=== PATIENT | female | born 1945 | race Caucasian/White ===

== ENCOUNTER → 2023-05-14 11:39 | Outpatient (BNVA) | payer MEDICARE, SELFPAY | PROVIDERS: PCP Internal Medicine Hematology & Oncology; Visit Provider Psychiatry & Neurology Neurology | DX: G62.9 Polyneuropathy, unspecified (principal) | CPT/HCPCS: 99203 ==

== ENCOUNTER → 2023-06-23 13:36 | Outpatient (BNVA) | payer MEDICARE, SELFPAY | PROVIDERS: Absent Provider Psychiatry & Neurology Neurology; PCP Internal Medicine Hematology & Oncology; Visit Provider Psychiatry & Neurology Neurology | DX: G62.89 Other specified polyneuropathies (principal) | CPT/HCPCS: 95910 ==

== ENCOUNTER → 2023-11-05 10:21 | Outpatient (BNVA) | payer MEDICARE, SELFPAY | PROVIDERS: PCP Internal Medicine Hematology & Oncology; Visit Provider Psychiatry & Neurology Neurology | DX: R20.2 Paresthesia of skin (principal); M79.641 Pain in right hand; M79.604 Pain in right leg; M79.671 Pain in right foot; G62.9 Polyneuropathy, unspecified | CPT/HCPCS: 99212; 99213 ==

== ENCOUNTER → 2023-12-08 10:07 | Outpatient (BNVA) | payer MEDICARE, SELFPAY | PROVIDERS: PCP Internal Medicine Hematology & Oncology; Visit Provider Podiatrist Foot & Ankle Surgery | DX: G62.9 Polyneuropathy, unspecified (principal) | CPT/HCPCS: 99203 ==